=== PATIENT | female | born 1930 | race Caucasian/White ===

== ENCOUNTER 2017-11-09 10:45 | Inpatient (IN) | payer OTHER ==
[2017-11-09] MEDS: ALBUTEROL 0.083% (NEB) 2.5 MG/3 ML AMP INH (13:15)
[2017-11-09] MEDS: CEFEPIME 1GM/50 ML (PMX) 50 ML IVPB (13:32)
[2017-11-09 13:41] LABS: ADD MAN DIFF? NO
[2017-11-09 13:44] LABS: BASOPHIL # 0.1 10^3/ul (0.0-0.1); EOSINOPHILS # 0.2 10^3/ul (0.0-0.5); EOSINOPHILS % 2.7 % (0.0-7.0); HEMATOCRIT 25.2 % (37.0-47.0); HEMOGLOBIN 7.5 g/dl (12.0-16.0); LYMPHOCYTES # 1.8 10^3/ul (0.8-2.9); LYMPHOCYTES % 24.8 % (15.0-51.0); MEAN CORPUSCULAR HEMOGLOBIN 21.6 pg (29.0-33.0); MEAN CORPUSCULAR HGB CONC 29.8 g/dl (32.0-37.0); MEAN CORPUSCULAR VOLUME 72.4 fl (82.0-101.0); MEAN PLATELET VOLUME 10.1 fl (7.4-10.4); MONOCYTES % 14.2 % (0.0-11.0); NEUTROPHILS % 57.2 % (39.0-77.0); PLATELET COUNT 341 10^3/UL (140-415); RED BLOOD COUNT 3.48 10^6/ul (4.20-5.40); RED CELL DISTRIBUTION WIDTH 15.8 % (11.5-14.5)
[2017-11-09 13:44] LABS: WHITE BLOOD COUNT 7.1 10^3/ul (4.8-10.8)
[2017-11-09] MEDS: VANCOMYCIN 1 GM (PMX) 250 ML IVPB (13:54)
[2017-11-09 14:06] LABS: ALANINE AMINOTRANSFERASE 27 IU/L (13-69); ALBUMIN 4.6 g/dl (3.3-4.9); ALBUMIN/GLOBULIN RATIO 1.53; ALKALINE PHOSPHATASE 77 IU/L (42-121); ANION GAP 19 (8-16); ASPARTATE AMINO TRANSFERASE 26 IU/L (15-46); BILIRUBIN,INDIRECT 0.1 mg/dl (0-1.1); BILIRUBIN,TOTAL 0.1 mg/dl (0.2-1.3); BLOOD UREA NITROGEN 17 mg/dl (7-20); CALCIUM 9.5 mg/dl (8.4-10.2); CARBON DIOXIDE 24 mmol/L (21-31); CHLORIDE 98 mmol/L (97-110); CREATININE 0.82 mg/dl (0.44-1.00); GLUCOSE 100 mg/dl (70-220); POTASSIUM 5.1 mmol/L (3.5-5.1); SODIUM 136 mmol/L (135-144); TOTAL PROTEIN 7.6 g/dl (6.1-8.1)
[2017-11-09 14:17] LABS: TROPONIN-I < 0.012 ng/ml (0.00-0.12)
[2017-11-09] MEDS ORDERED: ACETAMINOPHEN 325 MG TAB PO ×2 (15:00→22:30)
[2017-11-09] MEDS ORDERED: ONDANSETRON 4 MG INJ IV ×2 (15:00→22:30)
[2017-11-09 19:17] LABS: IMMEDIATE SPIN CROSSMATCH 1 2
[2017-11-09] MEDS: ALBUTEROL/IPRATROPIUM (NEB) 3 ML AMP HHN (22:30)
[2017-11-09] MEDS ORDERED: ALBUTEROL 0.083% (NEB) 2.5 MG/3 ML AMP HHN (22:30)
[2017-11-09] MEDS ORDERED: HYDROmorphONE 0.5 MG/0.5 ML SYG IV (22:30)
[2017-11-09 22:40] LABS: IRON < 10 ug/dl (35-150)
[2017-11-09 22:43] LABS: TOTAL IRON BINDING CAPACITY 416 ug/dl (241-421)
[2017-11-09] MEDS: SOD CHLORIDE 0.9% 1,000 ML IV (23:27)
[2017-11-09] MEDS: LISINOPRIL 10 MG TAB PO (23:28)
[2017-11-09] MEDS: FAMOTIDINE 20 MG TAB PO (23:28)
[2017-11-09] MEDS ORDERED: GLUCOSE GEL 15 GRAM TUBE BUCCAL (23:30)
[2017-11-09] MEDS ORDERED: GLUCOSE GEL 15 GRAM TUBE PO ×2 (23:30)
[2017-11-09] MEDS ORDERED: DEXTROSE 50% 50 ML SYRINGE IV ×2 (23:30)
[2017-11-09] MEDS ORDERED: GLUCAGON 1 MG INJ IM (23:30)
[2017-11-10 00:06] LABS: FOLATE > 20.0 ng/ml (2.8-20.0)
[2017-11-10] MEDS: ALBUTEROL/IPRATROPIUM (NEB) 3 ML AMP HHN ×4 (01:26→20:11)
[2017-11-10] MEDS: LEVOTHYROXINE 50 MCG TAB PO (06:33)
[2017-11-10] MEDS: LEVOFLOXACIN 750 MG TABLET PO (06:34)
[2017-11-10] MEDS: INSULIN ASPART [NOVOLOG] 3 ML PEN SC ×4 (08:00→21:38)
[2017-11-10] MEDS: FAMOTIDINE 20 MG TAB PO ×2 (08:38→21:33)
[2017-11-10] MEDS: predniSONE 20 MG TAB PO (08:38)
[2017-11-10] MEDS: LISINOPRIL 10 MG TAB PO ×2 (08:39→21:34)
[2017-11-10 09:04] LABS: ADD MAN DIFF? NO
[2017-11-10 09:17] LABS: WHITE BLOOD COUNT 5.8 10^3/ul (4.8-10.8)
[2017-11-10 09:17] LABS: BASOPHILS % 0.7 % (0.0-2.0); EOSINOPHILS # 0.1 10^3/ul (0.0-0.5); EOSINOPHILS % 2.2 % (0.0-7.0); HEMATOCRIT 31.2 % (37.0-47.0); HEMOGLOBIN 9.8 g/dl (12.0-16.0); LYMPHOCYTES % 17.7 % (15.0-51.0); MEAN CORPUSCULAR HEMOGLOBIN 23.7 pg (29.0-33.0); MEAN CORPUSCULAR HGB CONC 31.4 g/dl (32.0-37.0); MEAN CORPUSCULAR VOLUME 75.5 fl (82.0-101.0); MONOCYTE # 0.8 10^3/ul (0.3-0.9); MONOCYTES % 13.4 % (0.0-11.0); NEUTROPHIL # 3.8 10^3/ul (1.6-7.5); NEUTROPHILS % 65.7 % (39.0-77.0); PLATELET COUNT 252 10^3/UL (140-415); RED BLOOD COUNT 4.13 10^6/ul (4.20-5.40); RED CELL DISTRIBUTION WIDTH 17.6 % (11.5-14.5)
[2017-11-10 09:45] LABS: ANION GAP 18 (8-16); BLOOD UREA NITROGEN 14 mg/dl (7-20); CALCIUM 8.2 mg/dl (8.4-10.2); CARBON DIOXIDE 23 mmol/L (21-31); CHLORIDE 103 mmol/L (97-110); CREATININE 0.85 mg/dl (0.44-1.00); GLUCOSE 78 mg/dl (70-220); POTASSIUM 4.5 mmol/L (3.5-5.1); SODIUM 139 mmol/L (135-144)
[2017-11-10] MEDS: ATORVASTATIN 10 MG TAB PO (21:33)
[2017-11-11] MEDS: ALBUTEROL/IPRATROPIUM (NEB) 3 ML AMP HHN ×3 (01:38→13:34)
[2017-11-11] MEDS: LEVOTHYROXINE 50 MCG TAB PO (06:38)
[2017-11-11] MEDS: INSULIN ASPART [NOVOLOG] 3 ML PEN SC ×2 (08:00→11:39)
[2017-11-11] MEDS: FAMOTIDINE 20 MG TAB PO (08:24)
[2017-11-11] MEDS: predniSONE 20 MG TAB PO (08:24)
[2017-11-11] MEDS: LISINOPRIL 10 MG TAB PO (08:25)
[2017-11-11 08:44] LABS: ADD MAN DIFF? NO
[2017-11-11 08:46] LABS: WHITE BLOOD COUNT 10.5 10^3/ul (4.8-10.8)
[2017-11-11 08:46] LABS: BASOPHIL # 0.1 10^3/ul (0.0-0.1); BASOPHILS % 0.5 % (0.0-2.0); EOSINOPHILS % 0.4 % (0.0-7.0); HEMATOCRIT 30.9 % (37.0-47.0); LYMPHOCYTES # 1.2 10^3/ul (0.8-2.9); LYMPHOCYTES % 11.4 % (15.0-51.0); MEAN CORPUSCULAR HEMOGLOBIN 24.2 pg (29.0-33.0); MEAN CORPUSCULAR HGB CONC 32.4 g/dl (32.0-37.0); MEAN CORPUSCULAR VOLUME 74.6 fl (82.0-101.0); MONOCYTE # 1.5 10^3/ul (0.3-0.9); MONOCYTES % 13.8 % (0.0-11.0); NEUTROPHIL # 7.7 10^3/ul (1.6-7.5); NEUTROPHILS % 73.5 % (39.0-77.0); NUCLEATED RED BLOOD CELLS% 0.2 /100WBC (0.0-0.0); PLATELET COUNT 271 10^3/UL (140-415); RED BLOOD COUNT 4.14 10^6/ul (4.20-5.40); RED CELL DISTRIBUTION WIDTH 18.5 % (11.5-14.5)
[2017-11-11 09:38] LABS: ANION GAP 15 (8-16); BLOOD UREA NITROGEN 20 mg/dl (7-20); CALCIUM 8.7 mg/dl (8.4-10.2); CARBON DIOXIDE 23 mmol/L (21-31); CHLORIDE 104 mmol/L (97-110); CREATININE 0.98 mg/dl (0.44-1.00); GLUCOSE 103 mg/dl (70-220); POTASSIUM 4.1 mmol/L (3.5-5.1); SODIUM 138 mmol/L (135-144)
[2017-11-11] MEDS: FERROUS SULFATE (EC) 325 MG TAB PO (11:27)
[2017-11-11] MEDS: PANTOPRAZOLE (EC) 40 MG TAB PO (11:27)
== END 2017-11-11 16:10 | disposition home health service (06) | DRG 812 ==
LOC: E/R 10:45 → MS4 14:58
PROC: 30233N1 Transfusion of Nonautologous Red Blood Cells into Peripheral Vein, Percutaneous Approach (ICD-10-PCS; principal; 2017-11-09)
DX: D50.9 Iron deficiency anemia, unspecified (principal); F03.90 Unspecified dementia, unspecified severity, without behavioral disturbance, psychotic disturbance, mood disturbance, and anxiety; I48.91 Unspecified atrial fibrillation; J06.9 Acute upper respiratory infection, unspecified; E11.9 Type 2 diabetes mellitus without complications; I10 Essential (primary) hypertension; E78.5 Hyperlipidemia, unspecified; J45.909 Unspecified asthma, uncomplicated; R07.89 Other chest pain; N88.2 Stricture and stenosis of cervix uteri
CPT/HCPCS: 36415; 36430; 71045; 80048; 80053; 82607; 82746; 82962; 83540; 84484; 85025; 86850; 86900; 86901; 86920; 87040; 87400; 93005; 93306; 94640; 94664; 96374; 96375; 99285-25

== ENCOUNTER 2018-03-17 11:47 | Emergency (ER) | payer OTHER ==
[2018-03-17 16:26] LABS: ADD MAN DIFF? NO
[2018-03-17 16:31] LABS: BASOPHIL # 0.1 10^3/ul (0.0-0.1); BASOPHILS % 0.5 % (0.0-2.0); EOSINOPHILS # 0.3 10^3/ul (0.0-0.5); EOSINOPHILS % 2.4 % (0.0-7.0); HEMATOCRIT 38.2 % (37.0-47.0); HEMOGLOBIN 12.1 g/dl (12.0-16.0); LYMPHOCYTES # 2.1 10^3/ul (0.8-2.9); LYMPHOCYTES % 18.8 % (15.0-51.0); MEAN CORPUSCULAR HEMOGLOBIN 26.4 pg (29.0-33.0); MEAN CORPUSCULAR HGB CONC 31.7 g/dl (32.0-37.0); MEAN CORPUSCULAR VOLUME 83.2 fl (82.0-101.0); MEAN PLATELET VOLUME 9.4 fl (7.4-10.4); MONOCYTE # 1.1 10^3/ul (0.3-0.9); MONOCYTES % 9.8 % (0.0-11.0); NEUTROPHIL # 7.5 10^3/ul (1.6-7.5); NEUTROPHILS % 68.1 % (39.0-77.0); PLATELET COUNT 264 10^3/UL (140-415); RED BLOOD COUNT 4.59 10^6/ul (4.20-5.40); RED CELL DISTRIBUTION WIDTH 16.1 % (11.5-14.5)
[2018-03-17 16:57] LABS: ALANINE AMINOTRANSFERASE 19 IU/L (13-69); ALBUMIN 4.1 g/dl (3.3-4.9); ALBUMIN/GLOBULIN RATIO 1.32; ALKALINE PHOSPHATASE 97 IU/L (42-121); ANION GAP 16 (8-16); ASPARTATE AMINO TRANSFERASE 27 IU/L (15-46); BILIRUBIN,INDIRECT 0.2 mg/dl (0-1.1); BILIRUBIN,TOTAL 0.2 mg/dl (0.2-1.3); BLOOD UREA NITROGEN 25 mg/dl (7-20); CALCIUM 9.4 mg/dl (8.4-10.2); CARBON DIOXIDE 26 mmol/L (21-31); CHLORIDE 100 mmol/L (97-110); CREATININE 0.82 mg/dl (0.44-1.00); GLUCOSE 99 mg/dl (70-220); LIPASE 140 U/L (23-300); POTASSIUM 4.7 mmol/L (3.5-5.1); SODIUM 137 mmol/L (135-144); TOTAL PROTEIN 7.2 g/dl (6.1-8.1)
[2018-03-17 17:21] LABS: URINE BLOOD (Dip) POC Negative (NEGATIVE); URINE GLUCOSE (Dip) POC Negative (NEGATIVE); URINE KETONES (Dip) POC Negative (NEGATIVE); URINE LEUKOCYTE EST (Dip) POC Trace (NEGATIVE); URINE NITRITE (Dip) POC Negative (NEGATIVE); URINE TOTAL PROTEIN POC Negative (NEGATIVE)
== END 2018-03-17 18:19 | disposition home or self-care (01) ==
LOC: E/R 11:47
DX: L73.9 Follicular disorder, unspecified (principal); E03.9 Hypothyroidism, unspecified; E11.9 Type 2 diabetes mellitus without complications; I10 Essential (primary) hypertension; Z79.84 Long term (current) use of oral hypoglycemic drugs
CPT/HCPCS: 80053; 81003; 83690; 85025; 99283-25

== ENCOUNTER 2018-04-10 11:11 | Emergency (ER) | payer OTHER | END 2018-04-10 12:30 | disposition home or self-care (01) | LOC: E/R 11:11 | DX: H60.501 Unspecified acute noninfective otitis externa, right ear (principal); I10 Essential (primary) hypertension; E11.9 Type 2 diabetes mellitus without complications; E03.9 Hypothyroidism, unspecified; Z79.84 Long term (current) use of oral hypoglycemic drugs | CPT/HCPCS: 99283 ==

== ENCOUNTER 2018-07-07 10:41 | Emergency (ER) | payer OTHER ==
[2018-07-07] MEDS ORDERED: LIDOCAINE 1% (MDV) 20 ML INJ (11:23)
[2018-07-07] MEDS: LIDOCAINE 1% (MDV) 10 ML INJ INJ (11:24)
[2018-07-07] MEDS: CEFTRIAXONE 1 GM/50 ML (PMX) 50 ML IVPB (11:37)
[2018-07-07] MEDS: LIDOCAINE 1% (MDV) 20 ML INJ SC (11:37)
== END 2018-07-07 12:37 | disposition home or self-care (01) ==
LOC: E/R 10:41
DX: L02.211 Cutaneous abscess of abdominal wall (principal); E11.9 Type 2 diabetes mellitus without complications; I10 Essential (primary) hypertension
CPT/HCPCS: 10060; 96374; 99284-25

== ENCOUNTER 2018-07-10 09:58 | Emergency (ER) | payer OTHER | END 2018-07-10 11:14 | disposition home or self-care (01) | LOC: E/R 09:58 | DX: Z48.01 Encounter for change or removal of surgical wound dressing (principal); I10 Essential (primary) hypertension; E11.9 Type 2 diabetes mellitus without complications; Z79.84 Long term (current) use of oral hypoglycemic drugs; Z85.038 Personal history of other malignant neoplasm of large intestine | CPT/HCPCS: 99281 ==